=== PATIENT | female | born 1930 | race Caucasian/White ===

== ENCOUNTER → 2016-12-16 | Day surgery (SDC) | payer OTHER ==
[~2016-12-16] MED LIST: ACET-703 PO; CENTTAB PO; FENO160T PO; LISI10TA PO; PROPOFOL 100 MG/10 ML INJ IV ONE; SODIUM CHLORIDE 0.9% INJ 10 ML ONE; TRIAMCINOLONE ACETONIDE 40 MG/ML VIAL ONE
== END | disposition home or self-care (01) ==
LOC: ESDC 08:17
PROVIDERS: ATTEND Anesthesiology Pain Medicine
DX: M48.06 Spinal stenosis, lumbar region (principal)
CPT/HCPCS: 62323; J3301

== ENCOUNTER → 2017-02-12 | Day surgery (SDC) | payer OTHER ==
[~2017-02-12] MED LIST changes: -PROPOFOL 100 MG/10 ML INJ IV ONE; -SODIUM CHLORIDE 0.9% INJ 10 ML ONE; -TRIAMCINOLONE ACETONIDE 40 MG/ML VIAL ONE
== END | disposition still patient (30) ==
LOC: HSDC 05:29
PROVIDERS: ATTEND Orthopaedic Surgery Orthopaedic Surgery of the Spine
DX: Z53.8 Procedure and treatment not carried out for other reasons (principal)

== ENCOUNTER → 2017-02-19 | Day surgery (SDC) | payer OTHER ==
[~2017-02-19] VITALS: Ht 144.8 cm; Wt 71.5 kg
[~2017-02-19] MED LIST changes: +*morphine SULFATE 8 MG/ML PERIprocedure ONLY ONE; +ACETAMINOPHEN 1000 MG/100 ML VIAL IV ONE; +ACETAMINOPHEN/HYDROcodone 325 MG/7.5 MG TAB PO PRN; +BUPIVACAINE/EPINEPHRINE 0.25% 50 ML VIAL ONE; +CHLORHEXIDINE GLUCONATE 2 % 1 PACK (2 CLOTHS) TOPICAL PRN; +CHLORHEXIDINE GLUCONATE 4% SOLN 120 ML BTL TOPICAL SCH; +DO NOT ADM ANY ANTICOAGULANT DRUGS PRN; +GENTAMICIN SULFATE 80 MG/2 ML VIAL ONE; +INSULIN HUMAN REGULAR 1,000 UNITS/10 ML VIAL SQ PRN; +LACTATED RINGER'S 1000 ML INJ 1,000 ML IV ONE; +LACTATED RINGER'S 1000 ML IV PRN; +METOPROLOL TARTRATE 25 MG TAB PO PRN; +MIDAZOLAM HCL 2 MG/2 ML VIAL ONE; +NEOSTIGMINE 3 MG/3 ML SYR IV ONE; +ONDANSETRON HCL 4 MG/2 ML VIAL IV PUSH ONE; +PHENYLEPH/NS 1000 MCG/10 ML SYR IV ONE; +POVIDONE IODINE 5% (ANTISEPSIS KIT) 4 APPLICATIONS EACH NARE PRN; +PROPOFOL 200 MG/20 ML AMP IV ONE; +SODIUM CHLORID 0.9% 500 ML IV PRN; +ceFAZolin 1,000 MG/NS 100 ML IV SCH; +ceFAZolin 2 GM PREMIX 50 ML ONE; +ePHEDrine/NS 25 MG/5 ML SYR IV ONE; +fentaNYL CITRATE 250 MCG/5 ML AMP ONE
[2017-02-19 11:50] VITALS: BP 110/71; PULSE 76; RESP 20; TEMP 98.1; O2SAT 97
--- NOTE | 2017-02-19 16:14 | RADRPT ---
EXAM DATE/TIME: 02/19/2017 15:11 [place] COMPARISON: No previous studies available for comparison. INDICATIONS : Level localization for L3/4 L4/5 laminectomy. MEDICAL HISTORY : Unobtainable. SURGICAL HISTORY : Unobtainable. ENCOUNTER: Initial ACUITY: 1 day PAIN SCORE: Non-responsive. LOCATION: Lumbar spine FINDINGS: Localization markers project outwardly the L3-4 and L4-5 levels where spondylolisthesis is noted. The re also appears to be significant spondylolisthesis at the lumbosacral junction. CONCLUSION: Level localization at the L3-4 and L4-5 Chuck Parker MD on February 19, 2017 at 16:10 Board Certified Radiologist. This report was verified electronically.
[2017-02-19 17:30] VITALS: BP 121/61; PULSE 71; RESP 20; TEMP 96.2; O2SAT 95
--- NOTE | 2017-02-20 07:33 | MP ---
cc: BARRINGTON REED M.D. DATE OF SURGERY 02/19/2017 PREOPERATIVE DIAGNOSIS 1. L3-4 severe spinal stenosis, grade 1 spondylolisthesis. 2. L4-5 moderately severe spinal stenosis, grade 1 spondylolisthesis 3. Lumbar spine degenerative disease osteoarthritis. 4. Right greater than left lumbar radiculitis with bilateral lower extremity weakness. POSTOPERATIVE DIAGNOSIS 1. L3-4 severe spinal stenosis, grade 1 spondylolisthesis. 2. L4-5 moderately severe spinal stenosis, grade 1 spondylolisthesis 3. Lumbar spine degenerative disease osteoarthritis. 4. Right greater than left lumbar radiculitis with bilateral lower extremity weakness. PROCEDURE L3-4, L4-5 bilateral decompressive laminectomy, foraminotomy, partial facetectomy, with decompression of the nerve root. SURGEON Juan Reed MD SURGICAL CORSETIER ANTWAN Hernandez None ESTIMATED BLOOD LOSS 75 cc COMPLICATIONS None ANESTHESIA General DRAINS None CONDITION Stable PLAN OF ACTIVITY Per orders. PROCEDURE The patient was brought into the operating room and had satisfactory general endotracheal anesthesia by the Department of Anesthesia. The patient was carefully transferred onto the [facility] spinal frame. The lumbosacral spine was prepped and draped in the usual sterile manner. Under fluoroscopic guidance, 20 cc of 0.25% Marcaine with epinephrine was used to anesthetize the operative site. A midline incision was made over L3-4 and L4-5. Dissection carried through the skin and subcutaneous tissue. The paraspinal musculature removed from the posterior elements bilaterally. The patient was found to have severe spinal stenosis at L3-4, bilateral decompressive hemilaminectomy was performed. This was using multiple different types of burs, 2 mm, 3 mm and 4 mm Kerrison rongeurs. The patient was found to have severe spinal stenosis more on the right than the left with foraminal stenosis. Partial facetectomy was also performed. Bilateral decompressive hemilaminectomy was performed at L4-5. The patient was found to have moderately severe spinal stenosis. Following the decompression, the patient was found to have no evidence of any CSF leaks. Duragen was placed over the dura in order to help prevent postoperative adhesions. The wound was closed in routine manner with #2 Tycron suture used to close the fascia. The subcutaneous tissues closed in layers with a 2-0 Vicryl and skin was approximated with a running subcutaneous Vicryl suture. Dermabond placed in the incision. A sterile dressing applied. The patient tolerated the procedure well and arrived in the recovery room in stable and satisfactory condition. MD SHAWNA Villanueva/ARIEL /3:48 PM /7:13 AM
== END | disposition home or self-care (01) ==
LOC: HSDC 10:46
PROVIDERS: ATTEND Orthopaedic Surgery Orthopaedic Surgery of the Spine
DX: M48.06 Spinal stenosis, lumbar region (principal); M51.16 Intervertebral disc disorders with radiculopathy, lumbar region; M43.16 Spondylolisthesis, lumbar region; M47.26 Other spondylosis with radiculopathy, lumbar region; F17.210 Nicotine dependence, cigarettes, uncomplicated; I10 Essential (primary) hypertension; E78.5 Hyperlipidemia, unspecified; Z96.651 Presence of right artificial knee joint
CPT/HCPCS: 63047; 63048; 72020; 76000; J0131; J0690; J1580; J2250; J2270; J2370; J2405; J2710; J3010; J7120